=== PATIENT | female | born 1950 | race Caucasian/White ===

== ENCOUNTER 2019-07-30 10:40 | Emergency (ER) | payer MEDICARE, OTHER ==
[~2019-07-30] VITALS: Ht 167.6 cm; Wt 63.5 kg
--- NOTE | 2019-07-30 10:51 | NUR ---
PT IS IN ROOM #2A. DR MANZO EVALUATED THE PT.
--- NOTE | 2019-07-30 11:29 | NUR ---
PT WAS D/C'D TO HOME AFTER DR MANZO RE-EVALUATION. D/C INSTRUCTIONS GIVEN TO THE PT.
[2019-07-30 11:31] VITALS: BP 135/77
== END 2019-07-30 11:32 | disposition home or self-care (01) ==
LOC: ER 10:40
DX: R04.0 Epistaxis (principal); E78.5 Hyperlipidemia, unspecified; Z88.5 Allergy status to narcotic agent
CPT/HCPCS: A4663